=== PATIENT | female | born 1980 | race Hispanic/Latino ===

== ENCOUNTER 2024-11-27 09:20 | Day surgery (SDC) | payer SELFPAY ==
[~2024-11-27] VITALS: Ht 149.9 cm; Wt 59.0 kg
[2024-11-27] VITALS (18 sets, daily range): BP systolic 115–142; BP diastolic 62–94; PULSE 63–99; RESP 14–18; TEMP 97–98.1
[~2024-11-27 09:20] MED LIST: 0.9%NACL 1000ML 1,000 ML IV ONE
[2024-11-27] MEDS ORDERED: LIDOCAINE PF 100MG/5ML (2%) SYRINGE 5ML ONE (12:06)
[2024-11-27] MEDS: INDOMETHACIN 100 MG SUPP.RECT RC ONE (12:25)
[2024-11-27] MEDS ORDERED: IOHEXOL-350 50ML VIAL IV ONE (12:42)
[2024-11-27] MEDS: PROMETHAZINE HCL 25 MG/ML 1ML AMPULE IM ONE (12:55)
--- NOTE | 2024-11-28 16:11 | HMCIMG ---
X-RAY BILIARY DUCT ENDOSCOPY HISTORY: ERCP TECHNIQUE: X-RAY BILIARY DUCT ENDOSCOPY FINDINGS/IMPRESSION: Fluoroscopic image/s obtained for procedure documentation. Please see operative report for more details. Fluoroscopy time 1 minute 27 seconds.
== END 2024-11-27 14:15 | disposition home or self-care (01) ==
LOC: ENDO 09:20 → DAH 09:20 → ENDO 14:15
PROVIDERS: ATTEND Internal Medicine
DX: K80.50 Calculus of bile duct without cholangitis or cholecystitis without obstruction (principal); R14.0 Abdominal distension (gaseous); Z96.89 Presence of other specified functional implants; Z79.899 Other long term (current) drug therapy
CPT/HCPCS: 43262; 81025; 74328; 43264; 43275; J7030; J2550; J2003; J2704; J2405 ×2; Q9967; A4215 ×3; A4223; A4657 ×2; A7002 ×2; A4222; A4221; A4663; A4606; C1769; J3490